=== PATIENT | female | born 1985 | race Caucasian/White ===

== ENCOUNTER → 2016-04-10 | Outpatient (CLI) | payer BC | LOC: BHSO 08:37 | DX: F31.74 Bipolar disorder, in full remission, most recent episode manic (principal) ==

== ENCOUNTER → 2016-05-01 | Outpatient (CLI) | payer BC, OTHER | LOC: BHSO 08:57 | DX: F31.81 Bipolar II disorder (principal) ==

== ENCOUNTER → 2016-06-08 | Outpatient (CLI) | payer BC | LOC: BHSO 08:31 | DX: F31.74 Bipolar disorder, in full remission, most recent episode manic (principal) ==

== ENCOUNTER → 2016-06-19 | Outpatient (CLI) | payer BC | LOC: BHSO 08:39 | DX: F31.81 Bipolar II disorder (principal) ==

== ENCOUNTER → 2016-07-31 | Outpatient (CLI) | payer OTHER | LOC: BHSO 09:07 | DX: F31.81 Bipolar II disorder (principal) ==

== ENCOUNTER → 2016-09-11 | Outpatient (CLI) | payer OTHER | LOC: BHSO 08:36 | DX: F31.74 Bipolar disorder, in full remission, most recent episode manic (principal) ==

== ENCOUNTER → 2016-09-18 | Outpatient (CLI) | payer OTHER | LOC: BHSO 09:52 | DX: F31.81 Bipolar II disorder (principal) ==

== ENCOUNTER → 2016-10-09 | Outpatient (CLI) | payer OTHER | LOC: BHSO 09:50 | DX: F31.81 Bipolar II disorder (principal) ==

== ENCOUNTER → 2016-11-13 | Outpatient (CLI) | payer OTHER | LOC: BHSO 08:50 | DX: F31.81 Bipolar II disorder (principal) ==

== ENCOUNTER → 2016-12-11 | Outpatient (CLI) | payer OTHER | LOC: BHSO 08:38 | DX: F31.74 Bipolar disorder, in full remission, most recent episode manic (principal) ==

== ENCOUNTER → 2017-04-20 | Outpatient (CLI) | payer BC | LOC: BHSO 08:53 | DX: F31.32 Bipolar disorder, current episode depressed, moderate (principal) | CPT/HCPCS: G0463 ==

== ENCOUNTER → 2017-05-18 | Outpatient (CLI) | payer BC | LOC: BHSO 08:48 | DX: F31.31 Bipolar disorder, current episode depressed, mild (principal) | CPT/HCPCS: G0463 ==

== ENCOUNTER → 2017-06-13 | Outpatient (CLI) | payer BC | LOC: BHSO 09:06 | DX: F31.32 Bipolar disorder, current episode depressed, moderate (principal) | CPT/HCPCS: G0463 ==

== ENCOUNTER → 2017-07-04 | Outpatient (CLI) | payer BC | LOC: BHSO 09:56 | DX: F31.31 Bipolar disorder, current episode depressed, mild (principal) ==

== ENCOUNTER → 2017-08-08 | Outpatient (CLI) | payer BC | LOC: BHSO 09:51 | DX: F31.81 Bipolar II disorder (principal) ==

== ENCOUNTER → 2017-08-15 | Outpatient (CLI) | payer BC | LOC: BHSO 13:03 | DX: F31.31 Bipolar disorder, current episode depressed, mild (principal) | CPT/HCPCS: G0463 ==

== ENCOUNTER → 2018-05-10 | Outpatient (CLI) | payer BC | LOC: BHSO 12:48 | DX: F31.4 Bipolar disorder, current episode depressed, severe, without psychotic features (principal) | CPT/HCPCS: G0463 ==

== ENCOUNTER → 2018-05-20 | Outpatient (CLI) | payer BC | LOC: BHSO 12:50 | DX: F31.11 Bipolar disorder, current episode manic without psychotic features, mild (principal) ==

== ENCOUNTER → 2018-05-30 | Outpatient (CLI) | payer BC | LOC: BHSO 08:53 | DX: F31.81 Bipolar II disorder (principal) ==

== ENCOUNTER → 2018-06-17 | Outpatient (CLI) | payer BC | LOC: BHSO 08:01 | DX: F31.32 Bipolar disorder, current episode depressed, moderate (principal) | CPT/HCPCS: G0463 ==

== ENCOUNTER → 2018-08-19 | Outpatient (CLI) | payer BC | LOC: BHSO 08:10 | DX: F31.75 Bipolar disorder, in partial remission, most recent episode depressed (principal) | CPT/HCPCS: G0463 ==

== ENCOUNTER → 2023-03-29 | Outpatient (CLI) | payer BC | LOC: MC.RAD 07:36 | DX: N60.01 Solitary cyst of right breast (principal); N64.89 Other specified disorders of breast ==